=== PATIENT | female | born 1940 | race Asian ===

== ENCOUNTER 2017-07-13 15:07 | Emergency (ER) | payer MEDICARE ==
[2017-07-13 15:14] VITALS: BP 147/90
[2017-07-13] MEDS ORDERED: ACETAMINOPHEN 325 MG TABLET PO STA (16:08)
--- NOTE | 2017-07-13 16:09 | ED Physician Documentation ---
History of Present Illness - Stated complaint Stated Complaint: BLOOD PRESSURE - Chief complaint Chief Complaint: Fever - History obtained from History obtained from: Patient - History of Present Illness Timing: Other (This is a 76-year-old woman with long-standing hypertension but otherwise pretty healthy. She had migraines but it sounds like she has not had them in many years and he probably stopped around the time she was perimenopausal. She has had a gradual onset frontal headache radiating towards the neck since yesterday associated with shaking and feeling hot behind both of her eyes without visual changes. She has not tried anything for the headache. She had a specific concern that it might be her blood pressure, but her blood pressure is not really too remarkable here. There is no associated fevers.) Review of Systems Constitutional: denies: Fever, Chills (She describes some shaking episodes but not chills per se.) Eyes: denies: Loss of vision, Decreased vision, Photophobia Nose: denies: Rhinorrhea / runny nose, Congestion Throat: denies: Sore throat GI: denies: Nausea, Diarrhea PD PAST MEDICAL HISTORY - Present Medications Home Medications: Ambulatory Orders Medication Instructions Recorded Confirmed Lisinopril 20 mg PO 07/13/17 predniSONE [Deltasone] 60 mg PO DAILY 5 Days tablet 07/13/17 raNITIdine [Zantac] 150 mg PO DAILY 07/13/17 07/13/17 - Allergies Allergies/Adverse Reactions: Allergies Allergy/AdvReac Type Severity Reaction Status Date / Time No Known Drug Allergies Allergy Verified 07/13/17 15:14 PD ED PE NORMAL - Vitals Vital signs reviewed: Yes - General General: Alert and oriented X 3, No acute distress - HEENT HEENT: PERRL, EOMI, Ears normal, Other (Soft globes, fairly dense cataracts bilaterally, temporal areas are nontender.) - Neck Neck: Supple, no meningeal sign, No bony TTP - Cardiac Cardiac: RRR, No murmur - Respiratory Respiratory: No respiratory distress, Clear bilaterally - Abdomen Abdomen: Non tender - Neuro Neuro: Alert and oriented X 3, 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 Eye Opening: Spontaneous Motor: Obeys Commands Verbal: Oriented GCS Score: 15 - Psych Psych: Normal mood, Normal affect Results - Vitals Vitals: Vital Signs - 24 hr 07/13/17 15:11 Temperature 37.0 C Heart Rate 95 Respiratory 16 Rate Blood Pressure 147/90 H O2 Saturation 99 Oxygen O2 Source Room air - Labs Labs: Laboratory Tests 07/13/17 07/13/17 07/13/17 16:19 16:19 16:19 WBC 7.8 RBC 4.10 L Hgb 13.7 Hct 40.5 MCV 98.8 MCH 33.5 H MCHC 33.9 RDW 13.5 Plt Count 167 MPV 9.9 Neut # 6.1 Lymph # 0.9 L [place] # 0.8 Eos # 0.0 Baso # 0.0 Absolute Nucleated RBC 0.00 Nucleated RBC % 0.0 ESR 30 Sodium 133 L Potassium 3.7 Chloride 98 L Carbon Dioxide 27 Anion Gap 8.0 BUN 13 Creatinine 0.8 Estimated GFR (MDRD) 70 L Glucose 119 H Calcium 9.0 Total Bilirubin 1.0 AST 36 ALT 23 Alkaline Phosphatase 67 C-Reactive Protein 7.5 H Total Protein 7.7 Albumin 4.0 Globulin 3.7 Albumin/Globulin Ratio 1.1 Lipase 41 PD MEDICAL DECISION MAKING - ED course ED course: 76-year-old woman with new headaches, does not seem ill and has a normal exam. She had specific concerns about her blood pressure, but it is not high enough to cause symptoms. Differential diagnosis includes intracranial mass, temporal arteritis etc. Of note her ESR is borderline and her CRP is high. She has poor access to primary care follow-up, just moved to the area. We will start her on steroids. I spoke with the on-call surgeon, Saul Crow. He does perform temporal artery biopsies. Recommended putting it in email to the fire management officer to expedite follow-up, I did this as well. Departure - Departure Disposition: 01 Home, Self Care Clinical Impression: Headache Qualifiers: Headache type: unspecified Headache chronicity pattern: acute headache Intractability: not intractable Qualified Code(s): R51 - Headache Condition: Good Record reviewed to determine appropriate education?: Yes Instructions: ED Cephalgia Unspecified Follow-Up: Juanito Phillips MD [Provider Admit Priv/Credential] - Prescriptions: predniSONE [Deltasone] 60 mg PO DAILY 5 Days tablet Comments: I am a little worried based on your symptoms and labs that she might have something called giant cell arteritis, also known as temporal arteritis. This needs further workup with a biopsy. I spoke with the on-call surgeon, Dr. Saul Phillips listed on this form. He does perform this procedure. Please call his office tomorrow for the next available appointment. I also spoke sent an email to the fire management officer to help you get a quick appointment. Return if worse. It is imperative to take the steroids until you have a biopsy and he need to have the biopsy within the week. Return if worse or if new symptoms develop. Take Tylenol as needed for the headache.
[2017-07-13 16:23] LABS: BASOPHILS % (AUTO) 0.3 %; HGB - HEMOGLOBIN 13.7 g/dL (12.0-16.0); LYMPHOCYTES # (AUTO) 0.9 10^3/uL (1.5-3.5); MEAN CORPUSCULAR HEMOGLOBIN 33.5 pg (27.0-31.0); MEAN CORPUSCULAR HGB CONC 33.9 g/dL (32.0-36.0); MEAN CORPUSCULAR VOLUME 98.8 fL (81.0-99.0); MEAN PLATELET VOLUME 9.9 fL (7.9-10.8); MONOCYTES # (AUTO) 0.8 10^3/uL (0.0-1.0); MONOCYTES % (AUTO) 10.7 %; NEUTROPHILS # (AUTO) 6.1 10^3/uL (1.5-6.6); PLT - PLATELET COUNT 167 10^3/uL (130-450); RED CELL DISTRIBUTION WIDTH 13.5 % (12.0-15.0); WHITE BLOOD COUNT 7.8 x10^3/uL (4.8-10.8)
[2017-07-13 16:42] LABS: ALBUMIN/GLOBULIN RATIO 1.1 (1.0-2.2); CREATININE 0.8 mg/dL (0.4-1.0); CRP - C-REACTIVE PROTEIN 7.5 mg/dL (0-1.0); TOTAL PROTEIN 7.7 g/dL (6.7-8.2)
--- NOTE | 2017-07-13 17:46 | CT Report ---
EXAM: CT HEAD EXAM DATE: 07/13/2017 05:31 PM. CLINICAL HISTORY: Headache. COMPARISON: None. TECHNIQUE: Multiaxial CT images were obtained from the foramen magnum to the vertex. Reformats: Coron al. IV contrast: None. In accordance with CT protocol optimization, one or more of the following dose reduction techniques w ere utilized for this exam: automated exposure control, adjustment of mA and/or KV based on patient s ize, or use of iterative reconstructive technique. FINDINGS: Parenchyma: No intraparenchymal hemorrhage. No evidence of mass, midline shift, or CT findings of acu te infarction. Welch-white differentiation is distinct. Diffuse chronic microangiopathic white matter changes are evident. Extraaxial Spaces: Normal for age. No subdural or epidural collections identified. Ventricles: The ventricles and cortical sulci are enlarged, consistent with age-related tissue loss. Sinuses and orbits: Imaged paranasal sinuses, orbits, and mastoids show no significant abnormality. Bones: No evidence of fracture or calvarial defect. Other: None. IMPRESSION: Generalized age-related cortical atrophic changes without evidence of acute intracranial abnormality. [facility] Referring Provider Line: [phone] SITE ID: [id number]
== END 2017-07-13 17:45 | disposition home or self-care (01) ==
LOC: ED 15:07
DX: R51 Headache (principal); R79.82 Elevated C-reactive protein (CRP); I10 Essential (primary) hypertension; H26.9 Unspecified cataract
CPT/HCPCS: 36415; 70450; 80053; 83690; 85025; 85651; 86140; 99283; 99284; A9270

== ENCOUNTER 2019-01-06 12:24 | Outpatient (CLI) | payer MEDICARE | END 2019-01-06 12:25 | disposition home or self-care (01) | LOC: RT 12:24 | PROVIDERS: ATTEND Surgery | DX: Z01.810 Encounter for preprocedural cardiovascular examination (principal); M31.6 Other giant cell arteritis | CPT/HCPCS: 93005 ==

== ENCOUNTER 2019-01-11 10:36 | Day surgery (SDC) | payer MEDICARE ==
[2019-01-11] MEDS ORDERED: LACTATED RINGERS 1,000 ML IV ONE (10:49)
[2019-01-11] MEDS ORDERED: CEFAZOLIN SODIUM IN 0.9 % NACL 2 GM/100 ML BAG IV ONE (10:51)
--- NOTE | 2019-01-11 11:23 | ANESTHESIA ---
Pre-Anesthesia VS, & Labs - Diagnosis Right temporal arteritis - Procedure Right temporal artery biopsy Vital Signs: Temp Pulse Resp BP Pulse Ox 37.3 C 82 16 191/78 H 100 01/11/19 10:59 01/11/19 10:59 01/11/19 10:59 01/11/19 10:59 01/11/19 10:59 Height 5 ft 3 in Weight (kg) 53.1 kg Body Mass Index 19.0 - NPO Other (coffee at 0300) - Is Patient ?: Not Applicable - Lab Results Lab results reviewed: No Home Medications and Allergies Home Medications: Ambulatory Orders Aspirin [Aspirin EC] 81 mg PO ONCE PRN 01/06/19 Lisinopril 20 mg PO DAILY 07/13/17 raNITIdine [Zantac] 150 mg PO DAILY 07/13/17 Aspirin [Aspirin EC] 81 mg PO ONCE PRN 01/06/19 Allergies/Adverse Reactions: Allergies Allergy/AdvReac Type Severity Reaction Status Date / Time No Known Drug Allergies Allergy Verified 01/11/19 11:12 Anes History & Medical History - Anesthetic History Anesthesia Complications: reports: No previous complications Family history of Anesthesia Complications: Denies Family history of Malignant Hyperthermia: Denies - Medical History Cardiovascular: reports: Hypertension, Arrhythmia, Other Pulmonary: reports: None Gastrointestinal: reports: GERD Urinary: reports: None Neuro: reports: None Musculoskeletal: reports: None Endocrine/Autoimmune: reports: None Blood Disorders: reports: None Skin: reports: None Smoking Status: Never smoker Psychosocial: reports: No issues indicated - Surgical History Gynecologic: section, Hysterectomy Exam General: Alert, Oriented x3, Cooperative Dental: Other (Bridge) Mouth Opening: Greater than 4 Fingerbreadths Neck Mobility: Normal Mallampati classification: II Thyromental Distance: greater than 6 cm Respiratory: Lungs clear Cardiovascular: Regular rate Neurological: Normal speech Mental/Cognitive Status: Alert/Oriented X3 Cognitive Status: Within normal limits Plan Anesthesia Type: MAC Consent for Procedure(s) Verified and Reviewed: Yes Code Status: Attempt Resuscitation ASA classification: 2-Mild systemic disease Is this case an emergency?: No
[2019-01-11] MEDS ORDERED: BUPIVACAINE 0.5% PF 30 ML VIAL ONE (12:29)
[2019-01-11] MEDS ORDERED: PROPOFOL 200 MG/20 ML VIAL IVP ONE (12:30)
[2019-01-11] MEDS ORDERED: MIDAZOLAM 2 MG/2 ML VIAL IVP ONE (12:30)
[2019-01-11] MEDS ORDERED: LIDOCAINE-MPF 2% 5 ML VIAL IM ONE (12:30)
[2019-01-11] MEDS ORDERED: fentaNYL 100 MCG/2 ML VIAL IVP ONE (12:30)
[2019-01-11] MEDS ORDERED: LIDOCAINE 1%-EPI 1:100000 20 ML MDV ONE (12:30)
[2019-01-11] MEDS ORDERED: BACITRACIN ZINC OINT 14 GM TOP ONE (13:05)
[2019-01-11] MEDS ORDERED: ACETAMINOPHEN 325 MG TABLET PO PRN (13:18)
[2019-01-11] MEDS ORDERED: ONDANSETRON 4 MG/2 ML VIAL IVP PRN (13:18)
[2019-01-11 14:11] VITALS: BP 141/82
--- NOTE | 2019-01-11 15:17 | OPERATIVE REPORT ---
Operative Report - General Procedure Date: 01/11/19 Planned Procedure: Right temporal artery biopsy Pre-Op Diagnosis: Temporal Arteritis Procedure Performed: Right temporal artery biopsy Post Op Diagnosis: Temporal Arteritis - Procedure Note Primary Surgeon: Radha Anesthesia Provider: VALERIE Bolivar Anesthesia Technique: Local, MAC Pathology: Segment of artery to pathology in formalin Estimated Blood Loss (mL): 5 Findings: Thickened temporal artery Complications: None apparent - Other Other Information/Narrative: After obtaining informed consent, the patient is brought to the operating room and placed in the supine position on the operating table. Following successful sedation with monitored anesthesia care, the right temporal region was prepped and draped in the standard surgical fashion. A time out was held per SCOAP protocol. Following infiltration with local anesthetic to create a field block, a vertical incision was created over the artery. A 1.5 cm segment of the temporal artery was dissected free from surrounding structures. It was clipped proximally and distally and then liberated sharply. The specimen was passed from the table. The defect was checked for hemostasis and then closed in layers. Bacitracin ointment was applied to the incision. All sponge, needle, and instrument counts were correct at the conclusion of the case. The pateint was allowed to awaken from sedation without difficulty and was taken to the post anesthesia care unit in good condition.
== END 2019-01-11 10:37 | disposition home or self-care (01) ==
LOC: SDS 10:36
PROVIDERS: ATTEND Surgery
PROC: 03BS0ZX Excision of Right Temporal Artery, Open Approach, Diagnostic (ICD-10-PCS; principal; 2019-01-11 12:00)
DX: M31.6 Other giant cell arteritis (principal); I10 Essential (primary) hypertension; R51 Headache; I49.9 Cardiac arrhythmia, unspecified
CPT/HCPCS: 37609; A9270; J0690; J7120

== ENCOUNTER 2020-12-04 08:00 | Outpatient (CLI) | payer MEDICARE ==
[2020-12-04 12:02] LABS: ALBUMIN 4.2 g/dL (3.2-5.5); ALBUMIN/GLOBULIN RATIO 1.3 (1.0-2.2); BILIRUBIN,TOTAL 0.7 mg/dL (0.2-1.0); CALCIUM 9.7 mg/dL (8.5-10.3); CREATININE 0.7 mg/dL (0.4-1.0); POTASSIUM 3.8 mmol/L (3.5-5.0); TOTAL PROTEIN 7.4 g/dL (6.7-8.2)
== END 2020-12-04 23:59 ==
LOC: LAB.N 08:00
PROVIDERS: ATTEND Family Medicine
DX: G47.62 Sleep related leg cramps (principal)
CPT/HCPCS: 36415; 80053

== ENCOUNTER 2021-05-12 10:23 | Outpatient (CLI) | payer MEDICARE ==
--- NOTE | 2021-05-12 12:48 | XRAY Report ---
PROCEDURE: Ankle 3 View LT INDICATIONS: L LEG/FOOT PAIN TECHNIQUE: 3 views of the ankle were acquired. COMPARISON: None. FINDINGS: Bones: No fractures or dislocations. Mild ankle and hindfoot joint osteoarthritic changes are seen. Small dorsal calcaneal enthesophyte is noted. Ankle mortise is normally aligned. No suspicious bony lesions. Soft tissues: No tibiotalar joint effusion. Achilles tendon appears normal. IMPRESSION: Mild ankle and hindfoot joint osteoarthritis. No ankle fracture or dislocation. Ankle mo rtise is congruent. Small calcaneal enthesophyte. Reviewed by: Michael Sweeney MD on 05/12/2021 12:47 PM PST Approved by: Michael Sweeney MD on 05/12/2021 12:47 PM PST Station ID: [id number]
--- NOTE | 2021-05-12 12:50 | XRAY Report ---
PROCEDURE: Foot 3 View LT INDICATIONS: L FOOT PAIN TECHNIQUE: 3 views of the foot were acquired. COMPARISON: None FINDINGS: Bones: Acute impacted fracture involving fifth proximal phalangeal neck is noted without significant displacement or angulation of fracture site. Age indeterminant avulsion injury is also noted involvin g fifth metatarsal bases small calcified fragment. Moderate osteoarthritic changes throughout left fo ot is seen. Moderate hallux valgus. No suspicious bony lesions. Soft tissues: No tibiotalar joint effusion. Achilles tendon appears normal. IMPRESSION: Acute slightly impacted fifth proximal phalangeal neck fracture. Age indeterminant avulsion injury involving fifth metatarsal base lateral aspect. Moderate left foot osteoarthritis. Moderate hallux valgus. Reviewed by: Michael Sweeney MD on 05/12/2021 12:49 PM PST Approved by: Michael Sweeney MD on 05/12/2021 12:49 PM PST Station ID: [id number]
== END 2021-05-12 10:24 | disposition home or self-care (01) ==
LOC: DI 10:23
PROVIDERS: ATTEND Physician Assistant
DX: S92.515A Nondisplaced fracture of proximal phalanx of left lesser toe(s), initial encounter for closed fracture (principal); M19.072 Primary osteoarthritis, left ankle and foot; M20.32 Hallux varus (acquired), left foot; S99.822A Other specified injuries of left foot, initial encounter

== ENCOUNTER 2022-03-04 08:00 | Outpatient (CLI) | payer MEDICARE ==
[2022-03-04 18:04] LABS: CALCIUM 9.8 mg/dL (8.5-10.3); CREATININE 0.8 mg/dL (0.4-1.0); POTASSIUM 3.7 mmol/L (3.5-5.0)
== END 2022-03-04 23:59 | disposition home or self-care (01) ==
LOC: LAB.N 08:00
PROVIDERS: ATTEND Physician Assistant
DX: I10 Essential (primary) hypertension (principal)
CPT/HCPCS: 36415; 80048

== ENCOUNTER 2022-03-07 11:30 | Emergency (ER) | payer MEDICARE ==
[2022-03-07 11:52] VITALS: BP 181/73
--- NOTE | 2022-03-07 13:22 | ED Physician Documentation ---
History of Present Illness - Stated complaint Stated Complaint: HIGH BP/RT EYE PX - Chief complaint Chief Complaint: Cardiac - History obtained from History obtained from: Patient - Additonal information Additional information: 81-year-old woman is quite anxious about her blood pressure. She has been checking it frequently and has noticed elevated blood pressure readings. She is been to the walk-in clinic twice and Dr. Ramirezs this week. She had nifedipine added yesterday and has taken 1 dose. She also has a subconjunctival hemorrhage on the right that is slightly irritating. Denies chest pain or trouble breathing. No strokelike symptoms. Review of Systems Constitutional: reports: Reviewed and negative Nose: reports: Reviewed and negative Cardiac: denies: Chest pain / pressure, Palpitations Respiratory: denies: Dyspnea, Cough PD PAST MEDICAL HISTORY - Past Medical History Neuro: None - Present Medications Home Medications: Ambulatory Orders Medication Instructions Recorded Confirmed lisinopriL [Lisinopril] 40 mg PO DAILY 07/13/17 01/11/19 NIFEdipine [Procardia Xl] 30 mg PO DAILY 03/07/22 03/07/22 hydroCHLOROthiazide [Hydrodiuril] 12.5 mg PO DAILY 03/07/22 03/07/22 - Allergies Allergies/Adverse Reactions: Allergies Allergy/AdvReac Type Severity Reaction Status Date / Time No Known Drug Allergies Allergy Verified 03/07/22 11:52 - Social History Smoking Status: Never smoker PD ED PE NORMAL - Vitals Vital signs reviewed: Yes - General General: Alert and oriented X 3, No acute distress - HEENT HEENT: PERRL, EOMI, Other (She has a large subconjunctival hemorrhage on the right.) - Cardiac Cardiac: RRR, No murmur - Respiratory Respiratory: No respiratory distress, Clear bilaterally - Abdomen Abdomen: Non tender - Extremities Extremities: No edema, No calf tenderness / cord - Neuro Neuro: Alert and oriented X 3, Normal speech Results - Vitals Vitals: Vital Signs - 24 hr 03/07/22 11:48 Temperature 36.1 C L Heart Rate 89 Respiratory 16 Rate Blood Pressure 181/73 H O2 Saturation 99 Oxygen O2 Source Room air PD Medical Decision Making - ED course ED course: In accordance with the [facility] clinical policy from April 2012, this patient has asymptomatic elevated blood pressure without evidence of acute target organ injury. There are also no signs of acute stroke, cardiac ischemia, pulmonary edema, encephalopathy or acute congestive heart failure. Therefore the patient will be referred to their primary care provider for follow-up of their asymptomatic hypertension. Departure - Departure Disposition: 01 Home, Self Care Clinical Impression: Hypertension Qualifiers: Hypertension type: primary hypertension Qualified Code(s): I10 - Essential (primary) hypertension Subconjunctival bleed Qualifiers: Laterality: right Qualified Code(s): H11.31 - Conjunctival hemorrhage, right eye Condition: Good Record reviewed to determine appropriate education?: Yes Instructions: ED Diet Low Salt 2Gm, ED HTN Established Comments: As discussed, you just had your medications changed yesterday and I think it is too soon to change them again. Given that there is some anxiety associated with your blood pressure, I would actually recommend you do not check your blood pressure for the next 3 days. You can start checking AN on Friday and then follow-up with your primary care physician next week if it is still running high. Continue the lisinopril, hydrochlorothiazide, and nifedipine that you are currently prescribed. Also very important is to start keeping track of how much sodium you are eating. I bet if you were to start reading labels you will be quite surprised as far as the totals of sodium. You want to keep it to under 2 g a day. Return for new or worsening symptoms.
== END 2022-03-07 13:23 | disposition home or self-care (01) ==
LOC: ED 11:30
DX: H11.31 Conjunctival hemorrhage, right eye (principal); I10 Essential (primary) hypertension
CPT/HCPCS: 99281; 99283

== ENCOUNTER 2022-05-28 16:19 | Emergency (ER) | payer MEDICARE ==
[2022-05-28] MEDS ORDERED: LORazepam 2 MG/ML VIAL IVP STA (17:03)
--- NOTE | 2022-05-28 17:08 | ED Physician Documentation ---
History of Present Illness - Stated complaint Stated Complaint: HIGH BP - Chief complaint Chief Complaint: Cardiac - History obtained from History obtained from: Patient - History of Present Illness Timing: Chronic Pain level max: 0 Pain level now: 0 - Additonal information Additional information: Patient is an 81-year-old female who presents to the emergency department stating that she has had high blood pressure for many years. Patient states that she has been feeling like she has been trembling and shaking. She has been very anxious about her blood pressure. She is following up with her doctor, she states that he is changing her medication but she is only taking one of the medications that she has prescribed, sometimes she will state that she takes losartan, other times will take lisinopril. She has no chest pain, no shortness of breath. No numbness or tingling. No focal neurological deficits. No nausea or vomiting. Review of Systems Constitutional: denies: Fever, Chills Ears: denies: Ear pain Nose: denies: Rhinorrhea / runny nose, Congestion Respiratory: denies: Cough GI: denies: Vomiting, Diarrhea Skin: denies: Rash Musculoskeletal: denies: Neck pain, Back pain Neurologic: denies: Headache PD PAST MEDICAL HISTORY - Past Medical History Past Medical History: Yes Cardiovascular: Hypertension Respiratory: None Neuro: None Endocrine/Autoimmune: None GI: None BIOLOGICAL SCIENCE TECHNICIAN: None : None HEENT: None Psych: None Musculoskeletal: None Derm: None - Past Surgical History Past Surgical History: Yes General: 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 /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 SCIENCE TECHNICIAN: Hysterectomy - Present Medications Home Medications: Ambulatory Orders Medication Instructions Recorded Confirmed lisinopriL [Lisinopril] 40 mg PO DAILY 07/13/17 05/28/22 LORazepam [Ativan] 0.5 mg PO BID PRN #10 tablet 05/28/22 Losartan Potassium [Cozaar] 50 mg PO DAILY 05/28/22 05/28/22 - Allergies Allergies/Adverse Reactions: Allergies Allergy/AdvReac Type Severity Reaction Status Date / Time No Known Drug Allergies Allergy Verified 05/28/22 16:29 - Social History Does the pt smoke?: No Smoking Status: Never smoker Does the pt drink ETOH?: No Does the pt have substance abuse?: No - Immunizations Immunizations are current?: No - POLST Patient has POLST: No PD ED PE NORMAL - Vitals Vital signs reviewed: Yes - General General: Alert and oriented X 3, Other (Very anxious appearing, thin female) - HEENT HEENT: PERRL, Ears normal, Moist mucous membranes, Pharynx benign - Neck Neck: Supple, no meningeal sign, No JVD, No bruit - Cardiac Cardiac: RRR, No murmur, Strong equal pulses - Respiratory Respiratory: No respiratory distress, Clear bilaterally - Abdomen Abdomen: Soft, Non tender, Non distended - Derm Derm: Warm and dry - Extremities Extremities: No edema, No calf tenderness / cord - Neuro Neuro: Alert and oriented X 3 - Psych Psych: Other (Very anxious female) Results - Vitals Vitals: Vital Signs - 24 hr 05/28/22 05/28/22 05/28/22 16:23 16:31 17:02 Temperature 36.9 C Heart Rate 108 H 106 H Respiratory 24 16 17 Rate Blood Pressure 209/82 H O2 Saturation 98 99 05/28/22 05/28/22 05/28/22 17:13 18:19 18:31 Temperature Heart Rate 94 96 Respiratory 21 17 16 Rate Blood Pressure 166/120 H O2 Saturation 97 97 05/28/22 05/28/22 05/28/22 18:50 19:02 19:39 Temperature Heart Rate 95 96 Respiratory 16 19 16 Rate Blood Pressure 122/100 H 186/72 H O2 Saturation 100 96 05/28/22 05/28/22 05/28/22 20:07 21:16 21:40 Temperature Heart Rate 101 H 100 100 Respiratory 16 17 17 Rate Blood Pressure 206/104 H 185/80 H O2 Saturation 97 96 95 05/28/22 05/28/22 21:53 22:28 Temperature 36.5 C Heart Rate 91 Respiratory 17 16 Rate Blood Pressure 129/91 H O2 Saturation 96 Oxygen O2 Source Room air - EKG (time done) 1806 EKG releavant findings:: EKG personally interpreted by author of this note. Relevant findings are: Rate: Rate (enter#) (97) Rhythm: NSR Intervals: RBBB - Labs Labs: Laboratory Tests 05/28/22 05/28/22 05/28/22 17:11 17:11 17:11 WBC 18.1 H RBC 4.36 Hgb 14.1 Hct 40.8 MCV 93.6 MCH 32.3 H MCHC 34.6 RDW 11.9 L Plt Count 277 MPV 10.2 Neut # (Auto) 16.0 H Lymph # (Auto) 0.9 L [place] # (Auto) 1.1 H Eos # (Auto) 0.0 Baso # (Auto) 0.0 Absolute Nucleated RBC 0.00 Nucleated RBC % 0.0 Sodium 124 L Potassium 3.7 Chloride 87 L Carbon Dioxide 26 Anion Gap 11.0 BUN 13 Creatinine 0.7 Estimated GFR (MDRD) 80 L Glucose 128 H Calcium 9.0 Total Bilirubin 0.6 AST 20 ALT 18 Alkaline Phosphatase 78 Troponin I High Sens 12.3 Total Protein 7.9 Albumin 4.0 Globulin 3.9 Albumin/Globulin Ratio 1.0 Lipase 72 H Urine Color Urine Clarity Urine pH Ur Specific [place] Urine Protein Urine Glucose (UA) Urine Ketones Urine Occult Blood Urine Nitrite Urine Bilirubin Urine Urobilinogen Ur Leukocyte Esterase Urine RBC Urine WBC Ur Squamous Epith Cells Urine Bacteria Ur Microscopic Review Urine Culture Comments Nasal Adenovirus (PCR) Nasal B. parapertussis DNA (PCR) Nasal Coronavir 229E PCR Nasal Coronavir HKU1 PCR Nasal Coronavir NL63 PCR Nasal Coronavir OC43 PCR Nasal Enterovir/Rhinovir PCR Nasal Influenza B PCR Nasal Influenza A PCR Nasal Parainfluen 1 PCR Nasal Parainfluen 2 PCR Nasal Parainfluen 3 PCR Nasal Parainfluen 4 PCR Nasal RSV (PCR) Nasal B.pertussis DNA PCR Nasal C.pneumoniae (PCR) [place] Human Metapneumo PCR Nasal M.pneumoniae (PCR) Nasal SARS-CoV-2 (PCR) 05/28/22 05/28/22 05/28/22 18:50 19:30 20:19 WBC RBC Hgb Hct MCV MCH MCHC RDW Plt Count MPV Neut # (Auto) Lymph # (Auto) [place] # (Auto) Eos # (Auto) Baso # (Auto) Absolute Nucleated RBC Nucleated RBC % Sodium 126 L Potassium 3.7 Chloride 93 L Carbon Dioxide 25 Anion Gap 8.0 BUN 9 Creatinine 0.6 Estimated GFR (MDRD) 96 Glucose 133 H Calcium 8.5 Total Bilirubin AST ALT Alkaline Phosphatase Troponin I High Sens Total Protein Albumin Globulin Albumin/Globulin Ratio Lipase Urine Color YELLOW Urine Clarity HAZY Urine pH 6.5 Ur Specific [place] <=1.005 Urine Protein NEGATIVE Urine Glucose (UA) NEGATIVE Urine Ketones 15 H Urine Occult Blood MODERATE H Urine Nitrite NEGATIVE Urine Bilirubin NEGATIVE Urine Urobilinogen 0.2 (NORMAL) Ur Leukocyte Esterase NEGATIVE Urine RBC 6-10 H Urine WBC 0-3 Ur Squamous Epith Cells NONE SEEN Urine Bacteria None Seen Ur Microscopic Review INDICATED Urine Culture Comments NOT INDICATED Nasal Adenovirus (PCR) NOT DETECTED Nasal B. parapertussis DNA (PCR) NOT DETECTED Nasal Coronavir 229E PCR NOT DETECTED Nasal Coronavir HKU1 PCR NOT DETECTED Nasal Coronavir NL63 PCR NOT DETECTED Nasal Coronavir OC43 PCR NOT DETECTED Nasal Enterovir/Rhinovir PCR DETECTED A Nasal Influenza B PCR NOT DETECTED Nasal Influenza A PCR NOT DETECTED Nasal Parainfluen 1 PCR NOT DETECTED Nasal Parainfluen 2 PCR NOT DETECTED Nasal Parainfluen 3 PCR NOT DETECTED Nasal Parainfluen 4 PCR NOT DETECTED Nasal RSV (PCR) NOT DETECTED Nasal B.pertussis DNA PCR NOT DETECTED Nasal C.pneumoniae (PCR) NOT DETECTED [place] Human Metapneumo PCR NOT DETECTED Nasal M.pneumoniae (PCR) NOT DETECTED Nasal SARS-CoV-2 (PCR) NOT DETECTED - Rads (name of study) cxr Relevant Findings:: Final report received, See rad report PD Medical Decision Making - ED course Complexity details: reviewed results, re-evaluated patient, considered differential, d/w patient ED course: Patient was given Ativan and feels greatly improved. She appears highly anxious. She also has hyponatremia, this is chronic. Her usual sodium is around 130. She was down to 124. Given a liter of normal saline and improved to 126. Given a second liter of saline. Heart rate returned to normal. Blood pressure decreased. She is positive for rhinovirus as well. Eating and drinking without difficulty here. She requests Ativan for home, will prescribe her a small amount that she can use. Recommend that she follow-up closely with her doctor to recheck her sodium and to discuss medication for her anxiety. No focal neurological deficits. No chest pain. No shortness of breath. Patient counseled regarding signs and symptoms for which I believe and urgent re- evaluation would be necessary. Patient with good understanding of and agreement to plan and is comfortable going home at this time This document was made in part using voice recognition software. While efforts are made to proofread this document, sound alike and grammatical errors may occur. Departure - Departure Disposition: 01 Home, Self Care Clinical Impression: Hyponatremia, Anxiety, Rhinovirus Hypertension Qualifiers: Hypertension type: unspecified Qualified Code(s): I10 - Essential (primary) hypertension Condition: Good Instructions: ED Stress React, ED HTN Established Follow-Up: Patrick Holliday DO [Primary Care Provider] - Within 1 week Prescriptions: LORazepam [Ativan] 0.5 mg PO BID PRN #10 tablet PRN Reason: anxiety Comments: Your prescriptions were sent to [facility] in [place]. Please use the medication as needed. Please follow-up with your doctor for further care. You should have your sodium levels rechecked with your doctor in 1 week. Discharge Date/Time: 05/28/22 22:30
[2022-05-28 17:19] LABS: BASOPHILS % (AUTO) 0.2 %; HCT - HEMATOCRIT 40.8 % (37.0-47.0); HGB - HEMOGLOBIN 14.1 g/dL (12.0-16.0); LYMPHOCYTES # (AUTO) 0.9 10^3/uL (1.5-3.5); LYMPHOCYTES % (AUTO) 4.9 %; MEAN CORPUSCULAR HEMOGLOBIN 32.3 pg (27.0-31.0); MEAN CORPUSCULAR HGB CONC 34.6 g/dL (32.0-36.0); MEAN CORPUSCULAR VOLUME 93.6 fL (81.0-99.0); MEAN PLATELET VOLUME 10.2 fL (7.9-10.8); MONOCYTES # (AUTO) 1.1 10^3/uL (0.0-1.0); MONOCYTES % (AUTO) 6.1 %; NEUTROPHILS % (AUTO) 88.5 %; PLT - PLATELET COUNT 277 10^3/uL (130-450); RED BLOOD COUNT 4.36 10^6/uL (4.20-5.40); RED CELL DISTRIBUTION WIDTH 11.9 % (12.0-15.0); WHITE BLOOD COUNT 18.1 x10^3/uL (4.8-10.8)
[2022-05-28 17:36] LABS: BILIRUBIN,TOTAL 0.6 mg/dL (0.2-1.0); CREATININE 0.7 mg/dL (0.4-1.0); POTASSIUM 3.7 mmol/L (3.5-5.0); TOTAL PROTEIN 7.9 g/dL (6.7-8.2)
[2022-05-28] MEDS ORDERED: SODIUM CHLORIDE 0.9% 1,000 ML IV STA ×2 (18:00→21:38)
--- NOTE | 2022-05-28 18:38 | XRAY Report ---
PROCEDURE: Chest 1 View X-Ray INDICATIONS: elevated WBC count TECHNIQUE: One view of the chest was acquired. COMPARISON: None. FINDINGS: Surgical changes and devices: None. Lungs and pleura: No pleural effusions or pneumothorax. The lungs are hyperinflated. Lungs are corinna r. Mediastinum: Mediastinal contours appear normal. Heart size is enlarged. Bones and chest wall: No suspicious bony lesions. Overlying soft tissues appear unremarkable. IMPRESSION: The lungs are hyperinflated. No acute abnormality. Reviewed by: Matthew Nelson on 05/28/2022 6:36 PM PDT Approved by: Matthew Nelson on 05/28/2022 6:36 PM PDT Station ID: [id number]
[2022-05-28 20:33] LABS: B. PARAPERTUSSIS- RESP PCR PAN NOT DETECTED; B. PERTUSSIS- RESP PCR PANEL NOT DETECTED; C. PNEUMONIAE- RESP PCR PANEL NOT DETECTED; CORONAVIRUS 229E-RESP PCR NOT DETECTED; CORONAVIRUS HKU1-RESP PCR NOT DETECTED; CORONAVIRUS NL63-RESP PCR NOT DETECTED; CORONAVIRUS OC43-RESP PCR NOT DETECTED; HUMAN METAPNEUMOVIRUS NOT DETECTED; INFLUENZA A- RESP PCR PANEL NOT DETECTED; INFLUENZA B - RESP PCR PANEL NOT DETECTED; M. PNEUMONIAE- RESP PCR PANEL NOT DETECTED; PARAINFLUENZA VIRUS 1 NOT DETECTED; PARAINFLUENZA VIRUS 2 NOT DETECTED; PARAINFLUENZA VIRUS 3 NOT DETECTED; PARAINFLUENZA VIRUS 4 NOT DETECTED; RHINOVIRUS/ENTEROVIRUS DETECTED; RSV- RESP PCR PANEL NOT DETECTED; SARS-CoV-2 -RESP PCR PANEL NOT DETECTED
[2022-05-28] MEDS ORDERED: LORazepam 0.5 MG TABLET PO STA (21:11)
[2022-05-28 21:12] LABS: BILIRUBIN,URINE NEGATIVE (NEGATIVE); GLUCOSE, URINE (UA) NEGATIVE (NEGATIVE); KETONES,URINE (UA) 15 mg/dL (NEGATIVE); LEUKOCYTE ESTERASE, URINE NEGATIVE (NEGATIVE); NITRITE,URINE NEGATIVE (NEGATIVE); OCCULT BLOOD,URINE MODERATE (NEGATIVE); PH,URINE 6.5 PH (5.0-7.5); PROTEIN,URINE NEGATIVE (NEGATIVE); UROBILINOGEN,URINE 0.2 (NORMAL) E.U./dL (NORMAL)
[2022-05-28 21:18] LABS: CLARITY,URINE HAZY (CLEAR)
[2022-05-28 21:24] LABS: BACTERIA,URINE None Seen /HPF (None Seen); SQUAMOUS EPITHELIAL CELL,UR NONE SEEN (<= Few); WBC,URINE 0-3 /HPF (0-5)
[2022-05-28 21:33] LABS: CALCIUM 8.5 mg/dL (8.5-10.3); CREATININE 0.6 mg/dL (0.4-1.0); POTASSIUM 3.7 mmol/L (3.5-5.0)
[2022-05-28 22:30] VITALS: BP 129/91
== END 2022-05-28 22:30 | disposition home or self-care (01) ==
LOC: ED 16:19
DX: F41.9 Anxiety disorder, unspecified (principal); I10 Essential (primary) hypertension; B34.8 Other viral infections of unspecified site; E87.1 Hypo-osmolality and hyponatremia; Z20.822 Contact with and (suspected) exposure to COVID-19; Z79.899 Other long term (current) drug therapy
CPT/HCPCS: 36415; 71045; 80048; 80053; 81001; 83690; 84484; 85025; 87633; 93005; 96361; 96374; 99284; A9270; J2060; 81003; 87086

== ENCOUNTER 2022-08-22 16:33 | Outpatient (CLI) | payer MEDICARE | END 2022-08-22 23:59 | disposition critical access hospital (66) | LOC: EMS 16:33 | DX: R07.9 Chest pain, unspecified (principal); I10 Essential (primary) hypertension | CPT/HCPCS: A0425; A0427 ==

== ENCOUNTER 2022-08-22 16:57 | Emergency (ER) | payer MEDICARE ==
[2022-08-22 17:05] VITALS: BP 208/99
[2022-08-22 17:26] LABS: BASOPHILS % (AUTO) 0.3 %; EOSINOPHILS % (AUTO) 0.4 %; HCT - HEMATOCRIT 38.8 % (37.0-47.0); HGB - HEMOGLOBIN 13.3 g/dL (12.0-16.0); LYMPHOCYTES # (AUTO) 1.4 10^3/uL (1.5-3.5); MEAN CORPUSCULAR HEMOGLOBIN 32.2 pg (27.0-31.0); MEAN CORPUSCULAR HGB CONC 34.3 g/dL (32.0-36.0); MEAN CORPUSCULAR VOLUME 93.9 fL (81.0-99.0); MEAN PLATELET VOLUME 10.4 fL (7.9-10.8); MONOCYTES # (AUTO) 0.7 10^3/uL (0.0-1.0); MONOCYTES % (AUTO) 10.2 %; NEUTROPHILS % (AUTO) 69.7 %; PLT - PLATELET COUNT 265 10^3/uL (130-450); RED BLOOD COUNT 4.13 10^6/uL (4.20-5.40); RED CELL DISTRIBUTION WIDTH 13.1 % (12.0-15.0); WHITE BLOOD COUNT 7.2 x10^3/uL (4.8-10.8)
--- NOTE | 2022-08-22 17:43 | XRAY Report ---
PROCEDURE: Chest 1 View X-Ray INDICATIONS: Chest Pain TECHNIQUE: One view of the chest was acquired. COMPARISON: None. FINDINGS: Surgical changes and devices: None. Lungs and pleura: No pleural effusions or pneumothorax. Lungs are clear. Mediastinum: Mediastinal contours appear normal. Heart size is normal. Bones and chest wall: No suspicious bony lesions. Overlying soft tissues appear unremarkable. IMPRESSION: No acute cardiopulmonary process. Reviewed by: Foster Navarro on 08/22/2022 5:42 PM PDT Approved by: Foster Navarro on 08/22/2022 5:42 PM PDT Station ID: [id number]
[2022-08-22 17:47] LABS: ALBUMIN 3.9 g/dL (3.2-5.5); ALBUMIN/GLOBULIN RATIO 1.1 (1.0-2.2); BILIRUBIN,TOTAL 0.4 mg/dL (0.2-1.0); CREATININE 0.6 mg/dL (0.4-1.0); POTASSIUM 3.9 mmol/L (3.5-5.0); TOTAL PROTEIN 7.5 g/dL (6.7-8.2)
--- NOTE | 2022-08-22 17:57 | ED Physician Documentation ---
PD HPI CHEST PAIN - Stated complaint Stated Complaint: HEARTBURN - Chief complaint Chief Complaint: Cardiac - History obtained from History obtained from: Patient - History of Present Illness Timing - onset: How many days ago (3) Timing - duration: Days (3) Timing - details: Gradual onset Pain level max: 3 Pain level now: 3 Quality: Indigestion Associated symptoms: No: Shortness of air, Diaphoresis, Nausea, Vomiting, Feeling faint / dizzy, General Weakness, Palpitations, Cough - Additional information Additional information: Patient is an 81-year-old female who presents to the emergency department with epigastric and chest pain ongoing for the past 3 days. She states it feels like it is burning not like indigestion. She was seen at the walk-in clinic and sent here for further evaluation. It is nonradiating. Worse with eating and drinking, nothing makes it better. Has not tried antacids. No change with movement, palpation, inspiration. No shortness of air, nausea, vomiting, lightheadedness, palpitations or cough. She does have a history of reflux and states that this feels similar. Denies any cardiac history. 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 - Present Medications Home Medications: Ambulatory Orders Medication Instructions Recorded Confirmed lisinopriL [Lisinopril] 40 mg PO DAILY 07/13/17 05/28/22 LORazepam [Ativan] 0.5 mg PO BID PRN #10 tablet 05/28/22 Losartan Potassium [Cozaar] 50 mg PO DAILY 05/28/22 05/28/22 Famotidine [Pepcid] 20 mg PO BID #60 tablet 08/22/22 Sucralfate [Carafate] 1 gm PO ACHS #60 tablet 08/22/22 - Allergies Allergies/Adverse Reactions: Allergies Allergy/AdvReac Type Severity Reaction Status Date / Time No Known Drug Allergies Allergy Verified 08/22/22 17:04 - Social History Does the pt smoke?: No Smoking Status: Never smoker Does the pt drink ETOH?: No Does the pt have substance abuse?: No - Immunizations Immunizations are current?: No - POLST Patient has POLST: No PD ED PE NORMAL - Vitals Vital signs reviewed: Yes - General General: Alert and oriented X 3, No acute distress - HEENT HEENT: PERRL, Moist mucous membranes - Neck Neck: Supple, no meningeal sign - Cardiac Cardiac: RRR, Strong equal pulses - Respiratory Respiratory: No respiratory distress, Clear bilaterally - Abdomen Abdomen: Normal bowel sounds, Soft, Non distended, Other (Mild tenderness to palpation epigastric without peritoneal signs. Otherwise benign abdominal exam.) - Back Back: No CVA TTP, No spinal TTP - Derm Derm: Warm and dry - Extremities Extremities: No edema, No calf tenderness / cord - Neuro Neuro: Alert and oriented X 3 - Psych Psych: Normal mood, Normal affect Results - Vitals Vitals: Vital Signs - 24 hr 08/22/22 08/22/22 17:02 19:24 Temperature 37.1 C Heart Rate 98 Respiratory 16 Rate Blood Pressure 208/99 H O2 Saturation 98 98 Oxygen O2 Source Room air - EKG (time done) 1724 EKG releavant findings:: EKG personally interpreted by author of this note. Relevant findings are: Rate: Rate (enter#) (83) Rhythm: NSR Intervals: RBBB Compare to prior EKG: Unchanged from prior EKG - Labs Labs: Laboratory Tests 08/22/22 08/22/22 08/22/22 17:20 17:20 17:20 WBC 7.2 RBC 4.13 L Hgb 13.3 Hct 38.8 MCV 93.9 MCH 32.2 H MCHC 34.3 RDW 13.1 Plt Count 265 MPV 10.4 Neut # (Auto) 5.0 Lymph # (Auto) 1.4 L [place] # (Auto) 0.7 Eos # (Auto) 0.0 Baso # (Auto) 0.0 Absolute Nucleated RBC 0.00 Nucleated RBC % 0.0 Sodium 130 L Potassium 3.9 Chloride 94 L Carbon Dioxide 29 Anion Gap 7.0 BUN 14 Creatinine 0.6 Estimated GFR (MDRD) 96 Glucose 107 H Calcium 9.0 Total Bilirubin 0.4 AST 23 ALT 19 Alkaline Phosphatase 71 Troponin I High Sens 6.0 Total Protein 7.5 Albumin 3.9 Globulin 3.6 Albumin/Globulin Ratio 1.1 Lipase 101 H - Rads (name of study) Chest x-ray Relevant Findings:: Final report received, See rad report CT abdomen pelvis Relevant Findings:: Final report received, See rad report PD Medical Decision Making - ED course Complexity details: reviewed results, re-evaluated patient, considered differential (No ST elevation CT, no aortic dissection, no PE, no tension pneumothorax, no aortic aneurysm), d/w patient ED course: Patient is an 81-year-old female with 3 days of epigastric abdominal pain that radiates to the chest, described as a burning. Feels similar to her prior episodes of gastritis. Worse with eating and drinking. No acute findings on EKG. High sensitive troponin is negative. Mild elevation of her lipase, though not high enough to be pancreatitis. No LFT elevations. Patient does have thickening of the distal esophagus on CT scan consistent with gastritis. She also has a ovarian cyst that will need follow-up as an outpatient. She does not have any pain currently in the emergency department. She is on a PPI for home. We will add an H2 pierre and Carafate. Symptoms are not consistent with ACS currently. No evidence of PE. Patient counseled regarding signs and symptoms for which I believe and urgent re-evaluation would be necessary. Patient with good understanding of and agreement to plan and is comfortable going home at this time This document was made in part using voice recognition software. While efforts are made to proofread this document, sound alike and grammatical errors may occur. Departure - Departure Disposition: 01 Home, Self Care Clinical Impression: Gastritis Qualifiers: Gastritis type: unspecified gastritis Chronicity: acute Gastritis bleeding: without bleeding Qualified Code(s): K29.00 - Acute gastritis without bleeding Ovarian cyst Qualifiers: Laterality: right Qualified Code(s): N83.201 - Unspecified ovarian cyst, right side Condition: Good Instructions: ED PUD Vs Gastritis Follow-Up: Patrick Holliday DO [Primary Care Provider] - Within 1 week Prescriptions: Sucralfate [Carafate] 1 gm PO ACHS #60 tablet Famotidine [Pepcid] 20 mg PO BID #60 tablet Comments: Please follow-up with your doctor for further care. You should have an endoscopy performed if you have not had one recently. You have evidence of inflammation in your esophagus related to reflux. Your laboratory testing does not show any acute abnormalities. Please take your medications as prescribed. We will start you on 2 new medications for your gastritis/reflux. Your CT scan findings are below. You do have a right ovarian cystic lesion that will need ultrasound as an outpatient with your doctor and yearly follow-up. [facility] prescriptions were [facility] to [facility] in [place]. EXAM: CT/ABPEW ([id number]) PROCEDURE: ABDOMEN/PELVIS W INDICATIONS: epigastric pain CONTRAST: 100mL Omni 300 TECHNIQUE: After the administration of intravenous contrast, 5 mm thick sections acquired from the diaphragms to the symphysis. 5 mm thick coronal and sagittal reformats were acquired. For radiation dose reduction, the following was used: automated exposure control, adjustment of mA and/or kV according to patient size. COMPARISON: None FINDINGS: Image quality: Excellent. Lung bases and heart: Calcific granuloma in the left lower lobe. Small hiatal hernia. Mild presumed reflux within the distal esophagus and mild esophageal wall thickening. Liver: No solid mass. Gallbladder and biliary tree: Contracted. Spleen: No splenomegaly. Pancreas: No pancreatic ductal dilation. Adrenals: No adrenal nodule. Kidneys and ureters: No hydronephrosis. No renal cystic lesion which requires follow up. No solid mass. Junctional cortical defect of the left kidney. Bowel and peritoneum: No bowel distension. No pathologic free fluid. Diverticulosis without evidence of diverticulitis. Lymph nodes: No central or retroperitoneal adenopathy. Vessels: No infrarenal aortic aneurysm. PELVIS Reproductive organs: Simple appearing right ovarian cystic lesion measuring 3.1 cm. Bladder: No abnormal wall thickening, accounting for underdistension. Pelvic lymph nodes: No pelvic adenopathy by size criteria. Bones: No aggressive osseous abnormality. Other: No significant ventral or inguinal hernia. IMPRESSION: Gastroesophageal reflux with hiatal hernia and mild esophageal wall thickening, suggestive of esophagitis. No gallbladder or pancreatic pathology. Simple appearing right ovarian cystic lesion measuring 3.1 cm. Recommend outpatient pelvic ultrasound for further characterization, as this will need yearly follow-up. Discharge Date/Time: 08/22/22 19:24
[2022-08-22] MEDS ORDERED: iohexoL-300 100 ML VIAL ONE (18:06)
[2022-08-22] MEDS ORDERED: iohexoL-300 100 ML VIAL IVP ONE (18:35)
--- NOTE | 2022-08-22 18:59 | CT Report ---
PROCEDURE: ABDOMEN/PELVIS W INDICATIONS: epigastric pain CONTRAST: 100mL Omni 300 TECHNIQUE: After the administration of intravenous contrast, 5 mm thick sections acquired from the diaphragms to the symphysis. 5 mm thick coronal and sagittal reformats were acquired. For radiation dose reducti on, the following was used: automated exposure control, adjustment of mA and/or kV according to yovanny ent size. COMPARISON: None FINDINGS: Image quality: Excellent. Lung bases and heart: Calcific granuloma in the left lower lobe. Small hiatal hernia. Mild presumed r eflux within the distal esophagus and mild esophageal wall thickening. Liver: No solid mass. Gallbladder and biliary tree: Contracted. Spleen: No splenomegaly. Pancreas: No pancreatic ductal dilation. Adrenals: No adrenal nodule. Kidneys and ureters: No hydronephrosis. No renal cystic lesion which requires follow up. No solid mas s. Junctional cortical defect of the left kidney. Bowel and peritoneum: No bowel distension. No pathologic free fluid. Diverticulosis without evidence of diverticulitis. Lymph nodes: No central or retroperitoneal adenopathy. Vessels: No infrarenal aortic aneurysm. PELVIS Reproductive organs: Simple appearing right ovarian cystic lesion measuring 3.1 cm. Bladder: No abnormal wall thickening, accounting for underdistension. Pelvic lymph nodes: No pelvic adenopathy by size criteria. Bones: No aggressive osseous abnormality. Other: No significant ventral or inguinal hernia. IMPRESSION: Gastroesophageal reflux with hiatal hernia and mild esophageal wall thickening, suggestive of esophag itis. No gallbladder or pancreatic pathology. Simple appearing right ovarian cystic lesion measuring 3.1 cm. Recommend outpatient pelvic ultrasound for further characterization, as this will need yearly follow-up. Reviewed by: Foster Navarro on 08/22/2022 6:57 PM PDT Approved by: Foster Navarro on 08/22/2022 6:57 PM PDT Station ID: [id number]
== END 2022-08-22 19:24 | disposition home or self-care (01) ==
LOC: EDUNIT# → ED 16:57
DX: K29.00 Acute gastritis without bleeding (principal); N83.201 Unspecified ovarian cyst, right side; I10 Essential (primary) hypertension
CPT/HCPCS: 36415; 71045; 74177; 80053; 83690; 84484; 85025; 93005; 99284; Q9967

== ENCOUNTER 2022-08-23 22:19 | Emergency (ER) | payer MEDICARE ==
--- NOTE | 2022-08-23 22:56 | ED Physician Documentation ---
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: Hysterectomy - Present Medications Home Medications: Ambulatory Orders Medication Instructions Recorded Confirmed lisinopriL [Lisinopril] 40 mg PO DAILY 07/13/17 05/28/22 LORazepam [Ativan] 0.5 mg PO BID PRN #10 tablet 05/28/22 Losartan Potassium [Cozaar] 50 mg PO DAILY 05/28/22 05/28/22 Famotidine [Pepcid] 20 mg PO BID #60 tablet 08/22/22 Sucralfate [Carafate] 1 gm PO ACHS #60 tablet 08/22/22 - Allergies Allergies/Adverse Reactions: Allergies Allergy/AdvReac Type Severity Reaction Status Date / Time No Known Drug Allergies Allergy Verified 08/23/22 22:34 - Social History Does the pt smoke?: No Smoking Status: Never smoker Does the pt drink ETOH?: No Does the pt have substance abuse?: No - Immunizations Immunizations are current?: No - POLST Patient has POLST: No PD ED PE NORMAL - Vitals Vital signs reviewed: Yes - General General: Alert and oriented X 3, No acute distress - HEENT HEENT: PERRL, EOMI - Extremities Extremities: Other (There is a large bruise in the left antecubital fossa up the side of the bicep and down into the forearm a bit. Good range of motion there. Nontender. Bedside ultrasound shows all veins compressible.) - Neuro Neuro: Alert and oriented X 3, Normal speech Results - Vitals Vitals: Vital Signs - 24 hr 08/23/22 22:29 Temperature 36.2 C L Heart Rate 97 Respiratory 20 Rate O2 Saturation 100 Oxygen O2 Source Room air Departure - Departure Disposition: 01 Home, Self Care Clinical Impression: Subcutaneous hematoma Condition: Good Record reviewed to determine appropriate education?: Yes Instructions: ED Contusion Upper Ext Comments: There is no clot where the BRUISE IS. I suspect the bruising will last probably several weeks given its size. You can apply warm compresses and do gentle range of motion exercises. Return for new or worsening symptoms. Follow-up per your instructions per yesterday.
== END 2022-08-23 23:20 | disposition home or self-care (01) ==
LOC: ED 22:19
DX: S40.022A Contusion of left upper arm, initial encounter (principal); X58.XXXA Exposure to other specified factors, initial encounter; I10 Essential (primary) hypertension
CPT/HCPCS: 99281; 99283

== ENCOUNTER 2022-11-12 13:49 | Outpatient (CLI) | payer MEDICARE ==
--- NOTE | 2022-11-12 16:56 | Ultrasound Report ---
PROCEDURE: Ankle Brachial Index INDICATIONS: PAIN IN LEFT LOWER LEG TECHNIQUE: Ankle-brachial indices were obtained bilaterally and recorded. COMPARISONS: None. FINDINGS: Right ankle brachial index (BIANCA): 0.72 Left ankle brachial index (BIANCA): 0.71 Healing potential: Ankle pressures >55 mm Hg in non-diabetics and >80 mm Hg in diabetics are likely to achieve primary h ealing of ischemic foot ulcers. Toe pressures >30 mm Hg are likely to achieve primary healing of ischemic foot ulcers, toe or transme tatarsal amputations. IMPRESSION: Mild bilateral lower extremity arterial insufficiency. Reviewed by: Poncho Del Castillo MD on 11/12/2022 4:55 PM PDT Approved by: Poncho Del Castillo MD on 11/12/2022 4:55 PM PDT Station ID: [id number]
== END 2022-11-12 13:50 | disposition home or self-care (01) ==
LOC: DI 13:49
PROVIDERS: ATTEND Family Medicine
DX: I73.9 Peripheral vascular disease, unspecified (principal)
CPT/HCPCS: 93922

== ENCOUNTER 2023-02-06 08:21 | Day surgery (SDC) | payer MEDICARE ==
[2023-02-06] MEDS ORDERED: LACTATED RINGERS 1,000 ML IV ONE ×2 (08:30→10:07)
--- NOTE | 2023-02-06 09:38 | ANESTHESIA ---
Pre-Anesthesia VS, & Labs - Diagnosis heartburn - Procedure EGD Height: 5 ft 2 in Weight (kg): 47.8 kg Body Mass Index: 19.3 BMI Classification: Normal - NPO >8 hours - Is Patient ?: No Home Medications and Allergies Home Medications: Ambulatory Orders hydroCHLOROthiazide [Hydrodiuril] 12.5 mg PO DAILY 02/05/23 lisinopriL [Lisinopril] 40 mg PO DAILY 07/13/17 Losartan Potassium [Cozaar] 50 mg PO DAILY 05/28/22 hydroCHLOROthiazide [Hydrodiuril] 12.5 mg PO DAILY 02/05/23 Allergies/Adverse Reactions: Allergies Allergy/AdvReac Type Severity Reaction Status Date / Time No Known Drug Allergies Allergy Verified 02/05/23 13:05 Anes History & Medical History - Anesthetic History Anesthesia Complications: reports: No previous complications - Medical History Cardiovascular: reports: Hypertension Pulmonary: reports: None Gastrointestinal: reports: GERD Urinary: reports: None Neuro: reports: None Musculoskeletal: reports: None Endocrine/Autoimmune: reports: None Blood Disorders: reports: None Skin: reports: None Smoking Status: Never smoker - Surgical History General: reports: Other Gynecologic: reports: section, Oophrectomy Exam General: Alert, Oriented x3 Dental: WNL Mouth Opening: Greater than 4 Fingerbreadths Neck Mobility: Normal Mallampati classification: II Thyromental Distance: greater than 6 cm Respiratory: Lungs clear Cardiovascular: Regular rate, Normal S1, Normal S2 Plan Anesthesia Type: Total IV Consent for Procedure(s) Verified and Reviewed: Yes Code Status: Attempt Resuscitation ASA classification: 2-Mild systemic disease Is this case an emergency?: No
[2023-02-06] MEDS ORDERED: PROPOFOL 200 MG/20 ML VIAL IVP ONE (09:42)
[2023-02-06 10:37] VITALS: BP 109/53; O2SAT 99
--- NOTE | 2023-02-06 11:58 | ANESTHESIA POST OP EVALUATION ---
Anesthesia Post Eval - Post Anesthesia Eval Vitals: Last Vital Signs Temp 36.3 C L 02/06/23 10:07 Pulse 78 02/06/23 10:33 Resp 15 02/06/23 10:33 BP 109/53 L 02/06/23 10:33 Pulse Ox 99 02/06/23 10:33 O2 Flow Rate CV Function Including HR & BP: Stable Pain Control: Satisfactory Nausea & Vomiting: Negative Mental Status: Baseline Respiratory Status: Airway Patent Hydration Status: Satisfactory Anesthesia Complications: None
== END 2023-02-06 08:22 | disposition home or self-care (01) ==
LOC: SDS 08:21
PROVIDERS: ATTEND Surgery
PROC: 0DB78ZX Excision of Stomach, Pylorus, Via Natural or Artificial Opening Endoscopic, Diagnostic (ICD-10-PCS; 2023-02-06)
PROC: 0DB68ZX Excision of Stomach, Via Natural or Artificial Opening Endoscopic, Diagnostic (ICD-10-PCS; 2023-02-06)
PROC: 0DB28ZX Excision of Middle Esophagus, Via Natural or Artificial Opening Endoscopic, Diagnostic (ICD-10-PCS; 2023-02-06)
PROC: 0DB38ZX Excision of Lower Esophagus, Via Natural or Artificial Opening Endoscopic, Diagnostic (ICD-10-PCS; principal; 2023-02-06 09:30)
DX: K21.9 Gastro-esophageal reflux disease without esophagitis (principal); R13.10 Dysphagia, unspecified; K52.81 Eosinophilic gastritis or gastroenteritis; K31.7 Polyp of stomach and duodenum; K22.10 Ulcer of esophagus without bleeding; I10 Essential (primary) hypertension
CPT/HCPCS: 43239; J7120

== ENCOUNTER 2023-03-29 10:00 | Outpatient (CLI) | payer MEDICARE ==
--- NOTE | 2023-03-29 13:16 | CT Report ---
PROCEDURE: Head WO INDICATIONS: RIGHT LEG WEAKNESS TECHNIQUE: Noncontrast 4.5 mm thick angled axial sections acquired from the foramen magnum to the vertex. For r adiation dose reduction, the following was used: automated exposure control, adjustment of mA and/or kV according to patient size. COMPARISON: CT abdomen 07/13/2017. FINDINGS: Image quality: Excellent. CSF spaces: Basal cisterns are patent. No extra-axial fluid collections. Ventricles are symmetric in size and shape. Brain: No midline shift. No intracranial masses or hemorrhage. Hypodensities in the subcortical and periventricular white matter are most commonly seen in setting of chronic microvascular ischemic ray nges. Age-related cerebral and cerebellar volume loss is seen. Intracranial vascular calcifications a re noted. Skull and face: Calvarium and visualized facial bones are intact, without suspicious lesions. Sinuses: Visualized sinuses and mastoids are clear. IMPRESSION: 1.No acute intracranial abnormality. Consider MRI for further evaluation if there is concern for rece nt infarct. 2.Chronic microvascular ischemic changes and generalized parenchymal volume loss. Reviewed by: Damian Melton MD on 03/29/2023 1:15 PM PST Approved by: Damian Melton MD on 03/29/2023 1:15 PM PST Station ID: [id number]
== END 2023-03-29 10:01 | disposition home or self-care (01) ==
LOC: DI 10:00
PROVIDERS: ATTEND Family Medicine
DX: R29.898 Other symptoms and signs involving the musculoskeletal system (principal); G31.89 Other specified degenerative diseases of nervous system; I67.82 Cerebral ischemia